=== PATIENT | male | born 1990 | race Hispanic/Latino ===

== ENCOUNTER 2017-07-30 05:46 | Emergency (ER) | payer OTHER ==
[2017-07-30 06:02] LABS: BASOPHIL (%) 0.4 % (0-1); BASOPHIL COUNT 0.1 K/uL (0-0.1); EOSINOPHIL (%) 3.7 % (0-5); EOSINOPHIL COUNT 0.5 K/uL (0-0.3); HEMATOCRIT 47.4 % (38.0-50.0); IMMATURE GRANULOCYTE (%) 0.3 % (0.0-0.7); MCH 29.7 PG (29.0-34.0); MCHC 33.8 G/DL (30.0-36.0); MCV 87.9 FL (86-99); MONOCYTE (%) 3.3 % (3-12); MONOCYTE COUNT 0.4 K/uL (0-0.8); NEUTROPHIL (%) 61.3 % (45-76); NEUTROPHIL COUNT 7.9 K/uL (1.8-6.4); PLATELET COUNT 321 K/uL (156-360); RBC DIS.WIDTH-CV 12.5 % (11.8-14.6); RBC DIS.WIDTH-SD 40.3 % (39-53); RED BLOOD COUNT 5.39 M/uL (4.00-5.50); WHITE BLOOD COUNT 12.9 K/uL (4.1-10.2)
[2017-07-30 06:11] LABS: AMYLASE 51 IU/L (1-118); CHLORIDE 108 mEq/L (99-109); POTASSIUM 4.3 mEq/L (3.7-5.4); SODIUM 142 mEq/L (136-147)
[2017-07-30 06:12] LABS: GLUCOSE 120 mg/dL (70-99)
[2017-07-30 06:16] LABS: CREATININE 0.8 mg/dL (0.6-1.3); SERUM ETHYL ALCOHOL 175 mg/dL
[2017-07-30 06:17] LABS: UREA NITROGEN (BUN) 11 mg/dL (9-23)
[2017-07-30 06:19] LABS: LIPASE 32 U/L (1.0-51.0)
[2017-07-30 06:21] LABS: GFR ESTIMATE (CALCULATED) > 59 mL/min/ (58.99-99999)
[2017-07-30] MEDS ORDERED: KEFLEX500 MG PO (08:13)
[2017-07-30 09:23] VITALS: BP 141/90
== END 2017-07-30 09:54 | disposition home or self-care (01) ==
LOC: TRA 05:46
PROVIDERS: Emergency Medicine
PROC: 3E0234Z Introduction of Serum, Toxoid and Vaccine into Muscle, Percutaneous Approach (ICD-10-PCS; principal; 2017-07-30)
PROC: 0HQ0XZZ Repair Scalp Skin, External Approach (ICD-10-PCS; principal; 2017-07-30)
DX: S01.02XA Laceration with foreign body of scalp, initial encounter (principal); S06.0X9A Concussion with loss of consciousness of unspecified duration, initial encounter; S00.81XA Abrasion of other part of head, initial encounter; S50.311A Abrasion of right elbow, initial encounter; S50.351A Superficial foreign body of right elbow, initial encounter; S50.312A Abrasion of left elbow, initial encounter; S50.352A Superficial foreign body of left elbow, initial encounter; S50.811A Abrasion of right forearm, initial encounter; S60.410A Abrasion of right index finger, initial encounter; S60.412A Abrasion of right middle finger, initial encounter; S60.456A Superficial foreign body of right little finger, initial encounter; V48.6XXA Car passenger injured in noncollision transport accident in traffic accident, initial encounter; Y92.410 Unspecified street and highway as the place of occurrence of the external cause; Z23 Encounter for immunization; F10.129 Alcohol abuse with intoxication, unspecified; Y90.6 Blood alcohol level of 120-199 mg/100 ml
CPT/HCPCS: 70450; 70486; 71260; 72125; 72129; 72132; 73080; 73090; 73130; 74177; 80048; 81003; 82150; 83690; 85025; 86850; 86900; 86901; G0480; J0690; J2405; J3010